=== PATIENT | male | born 1945 | race Caucasian/White ===

== ENCOUNTER 2016-09-26 16:23 | Emergency (ER) | payer MEDICARE ==
[~2016-09-26] VITALS: Ht 177.8 cm; Wt 72.9 kg
[~2016-09-26 16:23] MED LIST: OMEP20CA5 PO
[2016-09-26 16:41] VITALS: BP 128/81; PULSE 86; RESP 14; TEMP 98.2; O2SAT 96
[2016-09-26] MEDS ORDERED: OMEP20CA2 (16:50)
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
[2016-09-26] MEDS ORDERED: TETANUS/DIPHTHERIA TOXOID ADULT 0.5 ML VIAL IM ONE (17:45)
[2016-09-26 17:51] VITALS: BP 145/80
== END 2016-09-26 17:52 | disposition home or self-care (01) ==
LOC: PHEFT 16:23
DX: S01.01XA Laceration without foreign body of scalp, initial encounter (principal); E78.00 Pure hypercholesterolemia, unspecified; K21.9 Gastro-esophageal reflux disease without esophagitis; W22.8XXA Striking against or struck by other objects, initial encounter
CPT/HCPCS: 12002